=== PATIENT | male | born 1930 | race Caucasian/White ===

== ENCOUNTER → 2018-05-31 17:06 | Outpatient (CLI) | payer MEDICARE ==
[2018-05-31 17:36] LABS: ANION GAP 7.1 mmol/L (8-16); CALCIUM 8.6 mg/dL (8.5-10.1); CARBON DIOXIDE 38.4 mmol/L (21.0-32.0); CREATININE - SERUM 1.2 mg/dL (0.6-1.3); POTASSIUM - SERUM 4.5 mmol/L (3.5-5.1)
== END | disposition home or self-care (01) ==
LOC: D.LABREF 17:06
PROVIDERS: Family Medicine
DX: I50.9 Heart failure, unspecified (principal)